=== PATIENT | female | born 1995 | race Caucasian/White ===

== ENCOUNTER 2016-06-28 10:56 | Emergency (ER) | payer OTHER ==
[2016-06-28 11:17] VITALS: TEMP 98; BMI 26.4
[2016-06-28] MEDS ORDERED: LIDOCAINE 2% 5 ML (PRESERVATIVE FREE) VIAL INF ONE (12:40)
[2016-06-28] MEDS ORDERED: CEPHALEXIN 500 MG CAP PO ONE (12:40)
--- NOTE | 2016-06-28 13:43 | EDPRACDOC ---
- General Information Information Source: Patient Home Medications: Home Medications Desvenlafaxine Succinate [Pristiq] 100 mg PO DAILY 04/07/14 Levonorgestrel-Ethin Estradiol [Jolessa] 1 each PO HS 04/07/14 Cephalexin Monohydrate [Keflex] 500 mg PO Q6H #28 cap 06/28/16 Gabapentin [Neurontin] 800 mg PO HS 06/28/16 Levothyroxine [Synthroid, Levoxyl] 50 mcg PO DAILY 06/28/16 [place] Carbonate 600 mg PO QAM 06/28/16 [place] Carbonate 900 mg PO HS 06/28/16 Allergies/Adverse Reactions: Allergies Allergy/AdvReac Type Severity Reaction Status Date / Time No Known Allergies Allergy Verified 06/28/16 11:17 - History of Present Illness Onset: 2 DAYS HPI: PT PRESENTS WITH LINEAR LACERATION TO LEFT UPPER BREAST X 16 HOURS. PT HAS PMH OF CUTTING AND STATES THIS IS HER USUAL WAY OF DEALING WITH STRESS. PT DENIES SI/HI. PT FOLLOWS PSYCHIATRIST AND HAS NOT HAD ANY CHANGE IN MEDICATIONS. NO APPARENT DISTRESS. PT NOT TEARFUL. - Pain Pain Severity: Mild Bleeding: Reports: Controlled Associated Signs & Symptoms: Reports: None ED Past Medical History - History Reviewed Yes Nurses notes reviewed and agree except as marked - Patient Medical History Psychological History: Denies: Depression Systemic History: Denies: Cancer Surgical History: Denies: Hysterectomy, Hernia Surgery - Family Medical History Reports: Hypertension (parents), Stroke (mother), Cardiac Disorders (mother afib ). Denies: Diabetes, Cancer - Social Medical History Smoking Status: Current some day smoker EDM Review of Systems - Review of Systems ROS Negative Except as Marked: Yes All systems reviewed and were negative except as marked Constitutional: No Symptoms Reported Respiratory: No Symptoms Reported Cardiovascular: No Symptoms Reported Gastrointestinal: No Symptoms Reported Neurological: No Symptoms Reported Musculoskeletal: No Symptoms Reported Integumentary: Wound Psychiatric: No Symptoms Reported - Physical Exam Constitutional: Alert (Awake), No apparent distress Oriented to: Time, Person, Place Last recorded Vital Signs: Last Vital Signs Temp 98 F 06/28/16 11:14 Pulse 63 06/28/16 13:01 Resp 16 06/28/16 13:01 BP 119/81 06/28/16 13:01 Pulse Ox 97 06/28/16 13:01 Oxygen Pulse Oxygen Saturation 97 O2 Device Room Air Oxygen Flow Rate Fraction of Inspired Oxygen ( FIO2) - HEENT Head: Normal Eye Exam: Normal Neck: Normal, Denies Pain, Midline - Respiratory/Cardiovascular Respiratory: Normal - CTA, Other (NOTED 7 CM LINEAR LACERATION ACROSS THE TOP OF THE LEFT BREAST WITH DERMAL TISSUE EXPOSED; NO BLEEDING; NO MAMMARY GLANDS NOTED;) Cardiovascular: Normal - GI Palpation: Normal Tenderness: Non tender - Musculoskeletal Back: Normal Extremities: Normal - Integumentary Skin: Normal Lymphatics: Normal - Neurologic Cerebellar: Normal Mood Description: Normal Thought: Coherent Perception: Normal ED Procedures - Suture/Laceration Suture #1 Left Upper Breast Wound Length (cm): 7.0 Wound's Depth, Shape: linear Wound Explored: clean Betadine Prep?: Yes Anesthesia: 1% Lidocaine Volume Anesthetic (ccs): 5 Wound Debrided: minimal Wound Margins: Other (LOOSE STITCHING TO LEFT BREAST) Wound Repaired With: Sutures Suture Size/Type: 4:0, nylon Number of Sutures: 5 Layer Closure?: No - Additional Information CASE DISCUSSED WITH ANNA WHO PROVIDED PT ADDITIONAL RESOURCES AND COACHING Decision Time to Discharge: 13:44 - Departure Disposition: Home Condition: Good Final Diagnosis: [id number], Deliberate self-cutting Instructions: Care For Your Stitches (ED) Education/Counseling Given To: Patient Education/Counseling Given Regarding: Diagnosis, Treatment, Follow Up Referrals: None,No Provider [Primary Care Provider] - One Week Prescriptions: Cephalexin Monohydrate [Keflex] 500 mg PO Q6H #28 cap Additional Instructions: DO WET TO DRY DRESSINGS FOR THE NEXT 2 DAYS, THEN JUST A REGULAR BANDAGE. HAVE STITCHES REMOVED IN ABOUT 10 DAYS.
[2016-06-28 13:57] VITALS: BP 134/82; PULSE 71
== END 2016-06-28 13:56 | disposition home or self-care (01) ==
LOC: ED 10:56
DX: S21.012A Laceration without foreign body of left breast, initial encounter (principal); X78.9XXA Intentional self-harm by unspecified sharp object, initial encounter; Y93.9 Activity, unspecified
CPT/HCPCS: 12002; 99283; J2001; J3490